=== PATIENT | female | born 1965 | race Caucasian/White ===

== ENCOUNTER 2023-05-23 13:48 | Emergency (ER) | payer MEDICAID ==
[~2023-05-23] VITALS: Ht 165.1 cm; Wt 124.1 kg
[~2023-05-23 13:48] MED LIST: CELEXA 20MG20 MG/TAB PO; CLINDAMYCIN HC150 MG PO; DOXYCYCLINE 10100 MG PO; HYZAAR 12.5 MG-1 TAB PO; K-DUR 2020 MEQ PO; LORTAB 5/500 501 TAB PO; MULTIPLE VITAMI1 CAP PO; NO HOME MEDICATIONS; PERCOCET 5/321 UDTAB PO; PROTONIX20 MG PO; WELLBUTRIN SR150 M1 PO
[2023-05-23 14:21] VITALS: TEMP 97.8
[2023-05-23] MEDS ORDERED: NS 1,000 ML IV ONE (15:30)
[2023-05-23] MEDS ORDERED: Morphine 4 MG/ML VIAL IV PRN (15:30)
[2023-05-23] MEDS ORDERED: Ondansetron 4 MG/2 ML VIAL IV PRN (15:30)
[2023-05-23 16:03] LABS: BASO % 0.3 % (0.0-2.0); EOS # 0.2 K/mm3 (0.0-0.7); EOS % 1.9 % (0.0-4.0); GRAN # 5.2 K/mm3 (1.4-6.5); GRAN % 65.3 % (42.2-75.2); HEMATOCRIT 39.4 % (37.0-47.0); LYMPH % 25.4 % (20.0-51.0); MEAN CELL VOLUME 91 fl (80.0-100.0); MEAN CORPUSCULAR HEMOGLOBIN 30 pg (27-31); MEAN CORPUSCULAR HGB CONC 33 g/dl (33.0-37.0); MEAN PLATELET VOLUME 9.3 fl (7.4-10.4); MONO # 0.5 K/mm3 (0.1-0.6); MONO % 6.8 % (1.7-9.3); PLATELET COUNT 246 K/mm3 (130-400); RED BLOOD COUNT 4.32 M/mm3 (4.10-5.30); REDCELL DISTRIBUTION WIDTH-CV 12.1 % (11.5-14.5)
[2023-05-23 16:06] LABS: COLLECTION METHOD CLEAN CATCH
[2023-05-23 16:29] LABS: ALBUMIN 3.7 gm/dL (3.5-5.0); CALCIUM 9.5 mg/dL (8.4-10.2); CREATININE, serum 1.09 mg/dL (0.57-1.11); POTASSIUM 3.5 mmol/L (3.5-4.5)
[2023-05-23 16:33] LABS: URINE APPEARANCE Hazy (CLEAR/HAZY); URINE COLOR Straw (YELLOW)
[2023-05-23 16:34] LABS: PH 5.5 (5.0-8.5); URINE BACTERIA Many /hpf (NONE SEEN); URINE BLOOD Negative (NEGATIVE); URINE GLUCOSE Negative (NEGATIVE); URINE KETONE Negative (NEGATIVE); URINE NITRATE Negative (NEGATIVE); URINE PROTEIN(semi-quant) Negative (NEGATIVE)
[2023-05-23 17:02] LABS: BILIRUBIN,TOTAL 0.4 mg/dL (0.2-1.2)
[2023-05-23] MEDS ORDERED: Iohexol 300 - 100 ML VIAL IV ONE (17:07)
[2023-05-23] MEDS ORDERED: NS 100 ML IV SCH (17:07)
[2023-05-23] MEDS ORDERED: cefTRIAXone 1 G in Water For Injection,Sterile 10 ML IV ONE (17:30)
[2023-05-23] MEDS ORDERED: PROTONIX 40MG T40 MG PO (18:15)
[2023-05-23] MEDS ORDERED: ZOFRAN ODT4 MG PO (18:15)
[2023-05-23] MEDS ORDERED: CEPHALEXIN500 M1 PO (18:15)
[2023-05-23 18:18] VITALS: BP 164/99; PULSE 70
== END 2023-05-23 18:29 | disposition home or self-care (01) ==
LOC: COL.ER 13:48
PROVIDERS: Personal Emergency Response Attendant
DX: N39.0 Urinary tract infection, site not specified (principal); R74.01 Elevation of levels of liver transaminase levels; R11.2 Nausea with vomiting, unspecified
CPT/HCPCS: J0696; J2270; J2405; J7030; Q9967